=== PATIENT | female | born 1980 | race Caucasian/White ===

== ENCOUNTER 2019-06-30 17:07 | Emergency (ER) | payer SELFPAY ==
[~2019-06-30] VITALS: Ht 160 cm; Wt 77.1 kg
[2019-06-30 17:10] VITALS: BP 120/70
--- NOTE | 2019-06-30 17:18 | NUR ---
PT AMBULATES TO BED 8 BIB FAMILY C/O COUGH, STUFFY NOSE X 3 DAYS, R EAR PAIN, SORE THROAT X 2 DAYS. MED HX: C SECTION
--- NOTE | 2019-06-30 17:32 | NUR ---
Sukhwinder CADE AT BEDSIDE
[2019-06-30 17:49] VITALS: BP 120/70
--- NOTE | 2019-06-30 17:50 | NUR ---
Patient discharged with v/s stable. Written and verbal after care instructions given and explained. Patient alert, oriented and verbalized understanding of instructions. Ambulatory with steady gait. All questions addressed prior to discharge. ID band removed. Patient advised to follow up with PMD. Rx of PROMETHAZINE given. Patient educated on indication of medication including possible reaction and side effects. Opportunity to ask questions provided and answered.
== END 2019-06-30 17:50 | disposition home or self-care (01) ==
LOC: MED 17:07
DX: J06.9 Acute upper respiratory infection, unspecified (principal)
CPT/HCPCS: 99283

== ENCOUNTER 2020-09-22 23:06 | Emergency (ER) | payer SELFPAY ==
--- NOTE | 2020-09-22 23:15 | NUR ---
PATIENT CALLED TO BE TRIAGE NO RESPONSE. PATIENT LEFT WITHOUT BEING SEEN BY DR. WITT. NO FURTHER CARE PROVIDED FOR PATIENT.
--- NOTE | 2020-09-22 23:20 | NUR ---
CALLED FOR THE SECOND TIME NO RESPONSE
--- NOTE | 2020-09-22 23:25 | NUR ---
CALLED FOR THE THIRD TIME , NO RESPONSE
== END 2020-09-22 23:15 | disposition left against medical advice (07) ==
LOC: MED 23:06
DX: Z53.21 Procedure and treatment not carried out due to patient leaving prior to being seen by health care provider (principal)